=== PATIENT | female | born 1980 | race Caucasian/White ===

== ENCOUNTER → 2024-10-16 | Day surgery (SDC) | payer BC ==
[2024-10-13 15:56] LABS: BASOPHILS % 0.6 % (0.0-1.0); EOSINOPHILS % 1.7 % (0.0-6.0); LYMPHOCYTES % 25.9 % (18.0-39.1); MONOCYTES % 7.9 % (4.4-11.3); NEUTROPHILS % 63.6 % (38.7-80.0); RED CELL DISTRIBUTION WIDTH 13.3 % (11.7-14.4)
[~2024-10-16] MED LIST: DEXAMETHASONE SOD PHOS INJ 4 MG/ML SDV ONE; FAMOTIDINE 20 MG/2 ML VIAL IV ONE; FENTANYL CITRATE/PF 100MCG/2 ML INJ ONE; GLYCOPYRROLATE INJ 0.2 MG/ML VIAL ONE; HYDROCODONE/APAP 7.5MG-325MG 1 EA TAB ONE; LIDOCAINE HCL 2% LOCAL INJ 5 ML SDV VIAL INJ ONE; OMEPRAZOLE40 MG PO; ONDANSETRON HCL INJ 2MG/ML 2ML 2 MG/ML VIAL ONE; PROPOFOL IV EMULSION 10 MG/ML 20 ML VIAL ONE; TUMS ULTRA400 MG PO; ZEPBOUND15 MG/0.5
[2024-10-16] MEDS: CEFAZOLIN SODIUM 2 GM ONE (09:21)
[2024-10-16] MEDS: LACTATED RINGER'S 1,000 ML ONE (09:24)
[2024-10-16 12:53] VITALS: TEMP 97
[2024-10-16] MEDS: HYDROCODONE/APAP 7.5MG-325MG 1 EA TAB PO ONE (13:39)
[2024-10-16 14:00] VITALS: BP 115/66; PULSE 70; RESP 15; O2SAT 99
== END | disposition home or self-care (01) ==
LOC: OR 08:52
PROVIDERS: ATTEND Podiatrist Foot Surgery
DX: M72.2 Plantar fascial fibromatosis (principal); M77.32 Calcaneal spur, left foot; M62.462 Contracture of muscle, left lower leg; K21.9 Gastro-esophageal reflux disease without esophagitis; E66.01 Morbid (severe) obesity due to excess calories; D64.9 Anemia, unspecified; C85.10 Unspecified B-cell lymphoma, unspecified site; Z87.891 Personal history of nicotine dependence; R94.31 Abnormal electrocardiogram [ECG] [EKG]; Z01.810 Encounter for preprocedural cardiovascular examination; Z01.812 Encounter for preprocedural laboratory examination; Z01.818 Encounter for other preprocedural examination; Z79.899 Other long term (current) drug therapy
CPT/HCPCS: 27687; 28119; 29893; 36415; 71046; 81025; 85025; 93005; C1762; J1100; J1308; J2003; J2405; J2704; J3010; J7121